=== PATIENT | male | born 1940 | race Caucasian/White ===

== ENCOUNTER 2018-07-21 12:15 | Emergency (ER) | payer OTHER ==
[~2018-07-21] VITALS: Ht 175.3 cm; Wt 86.2 kg
[2018-07-21] MEDS ORDERED: LISINOPRIL10 MG PO (12:28)
[2018-07-21] MEDS ORDERED: SYNTHROID50 MCG PO (12:29)
[2018-07-21] MEDS ORDERED: PROPECIA1 MG PO (12:29)
[2018-07-21] MEDS ORDERED: ZOLPIDEM TARTRA10 MG PO (12:30)
[2018-07-21 13:26] LABS: ABSOLUTE NEUTROPHILS 17.3 thou/uL (1.4-8.2); BASOPHILS 0.2 % (0.0-2.0); HEMATOCRIT 44.6 % (42.0-52.0); HEMOGLOBIN 15.4 gm/dL (14.0-18.0); MCH 32.6 pg (26.0-34.0); MCHC 34.4 g/dL (28.0-37.0); MCV 94.7 fL (80.0-100.0); MONOCYTES 4.3 % (1.0-8.0); PLATELET COUNT 176 thou/uL (150-400); POLYS 92.5 % (36.0-66.0); RBC 4.71 mil/uL (4.50-6.00); RDW 12.7 % (10.5-14.5); WBC 18.6 thou/uL (4.0-11.0)
[2018-07-21 13:39] LABS: CALCIUM 9.6 mg/dL (8.5-10.1); CREATININE 1.1 mg/dL (0.7-1.3); POTASSIUM 4.2 mmol/L (3.5-5.1)
[2018-07-21 13:45] LABS: ALBUMIN 3.7 g/dL (3.4-5.0); TOTAL PROTEIN 6.9 g/dL (6.4-8.2)
[2018-07-21] MEDS ORDERED: VENTOLIN HFA 1818 GM INH (14:10)
[2018-07-21] MEDS ORDERED: AZITHROMYCIN 2250 MG PO (14:10)
[2018-07-21 14:23] VITALS: BP 129/65
== END 2018-07-21 14:00 | disposition home or self-care (01) ==
LOC: ER 12:15
PROVIDERS: Physician Assistant
DX: J18.9 Pneumonia, unspecified organism (principal); D72.829 Elevated white blood cell count, unspecified; R11.10 Vomiting, unspecified; M79.10 Myalgia, unspecified site; I10 Essential (primary) hypertension; E03.9 Hypothyroidism, unspecified; Z90.89 Acquired absence of other organs; I95.9 Hypotension, unspecified